=== PATIENT | female | born 1975 | race Asian ===

== ENCOUNTER 2018-10-29 19:13 | Emergency (ER) | payer BC ==
[2018-10-29 19:34] VITALS: BP 114/70
[2018-10-29] MEDS ORDERED: Ibuprofen TAB* 600 MG PO ONE (19:45)
[2018-10-29] MEDS ORDERED: Ondansetron ODT TAB* 4 MG PO ONE ×2 (19:45→19:46)
--- NOTE | 2018-10-29 19:55 | UC ---
Nausea/Vomiting/Diarrhea HPI - HPI Summary HPI Summary: PATIENT REPORTS FEELING NAUSEATED FOR THE PAST FEW DAYS BUT NO VOMITING. YESTERDAY DEVELOPED SHARP ABDOMINAL PAIN AND WATERY DIARRHEA. HAS CHILLS AND FATIGUE. WAS FOUND TO HAVE FEVER OF 101.3 THE UC. HAS SOME SLIGHT CONGESTION BUT NO REAL COUGH. - History of Current Complaint Chief Complaint: UCGI Stated Complaint: DIARRHEA, AND ABDOMINAL PAIN Time Seen by Provider: 10/29/18 19:21 Hx Obtained From: Patient, Family/Sports Official - Hx Last Menstrual Period: iud Onset/Duration: Gradual Onset, Lasting Days, Still Present Severity Initially: Moderate Severity Currently: Moderate Pain Intensity: 0 Pain Scale Used: 0-10 Numeric Location: Diffuse Character: Sharp Aggravating Factor(s): Nothing Alleviating Factor(s): Nothing Nausea/Vomiting Presence: Nauseated Diarrhea Presence: Yes Diarrhea Duration: 24-36 hours Diarrhea Characteristics: Watery - Allergies/Home Medications Allergies/Adverse Reactions: Allergies Allergy/AdvReac Type Severity Reaction Status Date / Time No Known Allergies Allergy Verified 10/29/18 19:35 Home Medications: Home Medications Atorvastatin* [Lipitor 20 MG*] 20 mg PO DAILY 10/29/18 [History Confirmed ] metFORMIN* [Glucophage 1000 MG TAB *] 1,000 mg PO 0800,1700 10/29/18 [History Confirmed 10/29/18] PMH/Surg Hx/FS Hx/Imm Hx Endocrine History: Diabetes, Dyslipidemia - Surgical History Surgical History: None - Family History Known Family History: Positive: Non-Contributory - Social History Alcohol Use: Weekly Substance Use Type: None Smoking Status (MU): Never Smoked Tobacco Review of Systems All Other Systems Reviewed And Are Negative: Yes Constitutional: Positive: Fever, Chills, Fatigue ENT: Positive: Sinus Congestion Respiratory: Positive: Negative Cardiovascular: Positive: Negative Gastrointestinal: Positive: Abdominal Pain, Diarrhea, Nausea Genitourinary: Positive: Negative Physical Exam Triage Information Reviewed: Yes Appearance: No Pain Distress, Well-Nourished, Ill-Appearing - MILDLY Vital Signs: Initial Vital Signs Temp 101.3 F 10/29/18 19:31 Pulse 104 10/29/18 19:31 Resp 18 10/29/18 19:31 BP 114/70 10/29/18 19:31 Pulse Ox 99 10/29/18 19:31 Laboratory Tests 10/29/18 19:44 Influenza A (Rapid) Negative Influenza B (Rapid) Negative Vital Signs Reviewed: Yes Eyes: Positive: Conjunctiva Clear ENT: Positive: Hearing grossly normal, Pharynx normal, TMs normal Neck: Positive: Supple, Nontender, No Lymphadenopathy Respiratory Exam: Normal Cardiovascular: Positive: Tachycardia Abdomen Description: Positive: Nontender, Soft. Negative: CVA Tenderness (R), CVA Tenderness (L), Distended, Guarding Bowel Sounds: Positive: Present Musculoskeletal: Positive: No Edema Neurological: Positive: Alert Psychological: Positive: Normal Response To Family, Age Appropriate Behavior Skin: Negative: Rashes Naus/Vom/Diarrhea Course/Dx - Course Course Of Treatment: ABDOMEN BENIGN ON EXAM TODAY. PATIENT WITH 1 DAY OF DIARRHEA AND NAUSEA BUT NO VOMITING. RIGHT NOW WILL TREAT CONSERVATIVELY A LIKELY VIRAL GASTROENTERITIS. ADVISED CLEAR LIQUIDS, BLAND DIET. DISCUSSED WITH PATIENT AND THE IMPORTANCE OF GOING TO THE ER IF HER SYMPTOMS DO NOT BEGIN TO IMPROVE OVER THE NEXT SEVERAL DAYS OR IF SHE DEVELOPS SHORTNESS OF BREATH, DIZZINESS, WORSENING PAIN OR FAINTNESS. - Differential Dx/Diagnosis Provider Diagnosis: Acute gastroenteritis Condition At Discharge: Stable Discharge - Sign-Out/Discharge Documenting (check all that apply): Patient Departure All imaging exams completed and their final reports reviewed: No Studies - Discharge Plan Condition: Stable Disposition: HOME Prescriptions: Ondansetron ODT TAB* [Zofran Odt TAB*] 4 mg PO Q6H PRN #20 tab.odt PRN Reason: Nausea/Vomiting Patient Education Materials: Gastroenteritis (ED) Referrals: Gustabo Valencia MD [Primary Care Provider] - If Needed Additional Instructions: GASTROENTERITIS: You have gastroenteritis ("intestinal flu"). This disease is usually caused by a virus. There is no specific treatment. The disease will end by itself. For now, the main danger is dehydration. Give clear liquids. Examples include Pedialyte, Gatorade, clear broth, juices, flat sodas, and jello water. Medications may be prescribed by the physician for special cases. Once tolerated, the clear liquid diet may be supplemented with rice, cereal, toast, applesauce, or bananas. [place] [facility] [place] if vomiting increases or blood appears in the bowel movement or vomitus; if you fail to improve, or if signs of dehydration occur (tongue and mouth become dry, lethargy). ENSURE ADEQUATE HYDRATION. CLEAR LIQUIDS, BLAND DIET. AVOID CAFFEINE, DAIRY, GREASY, SPICY FOODS. ONCE YOU ARE TOLERATING CLEAR LIQUIDS YOU CAN ADVANCE TO SIMPLE, BLAND FOODS. FLU SWAB TODAY NEGATIVE. YOUR SYMPTOMS INCLUDING FEVER SHOULD BE IMPROVING OVER THE NEXT FEW DAYS. IF THEY ARE NOT IMPROVING GO TO THE ER FOR FURTHER EVALUATION. - Billing Disposition and Condition Condition: STABLE Disposition: Home
[2018-10-29 19:56] LABS: Influenza A Molecular NEGATIVE (Negative); Influenza B Molecular NEGATIVE (Negative)
== END 2018-10-29 20:40 | disposition home or self-care (01) ==
LOC: UCEAST 19:13
DX: K52.9 Noninfective gastroenteritis and colitis, unspecified (principal); R50.9 Fever, unspecified; R53.83 Other fatigue; E11.9 Type 2 diabetes mellitus without complications; Z79.84 Long term (current) use of oral hypoglycemic drugs; E78.5 Hyperlipidemia, unspecified
CPT/HCPCS: 99213; A9270-GY; G0463